=== PATIENT | male | born 1980 | race Caucasian/White ===

== ENCOUNTER 2018-06-13 16:49 | Emergency (ER) | payer BC ==
[~2018-06-13] VITALS: Ht 175.3 cm; Wt 75.6 kg
[~2018-06-13 16:49] MED LIST: NO HOME MEDICATIONS; NORCO 325 MG-51 TAB PO; UNABLE
[2018-06-13 17:25] VITALS: TEMP 98.2
[2018-06-13 18:39] LABS: BASO % 0.5 % (0.0-2.0); EOS % 0.3 % (0-4.0); GRAN # 3.9 (1.4-6.5); GRAN % 66.6 % (42.2-75.2); HEMATOCRIT 44.8 % (42.0-52.0); HEMOGLOBIN 15.9 g/dl (13.5-18.0); LYMPH # 1.6 (1.2-3.4); LYMPH % 27.6 % (20.0-51.0); MEAN CELL VOLUME 87 fl (80.0-100.0); MEAN CORPUSCULAR HEMOGLOBIN 31 pg (27.0-31.0); MEAN CORPUSCULAR HGB CONC 36 g/dl (33.0-37.0); MEAN PLATELET VOLUME 10.3 fl (7.4-10.4); MONO # 0.3 (0.1-0.6); MONO % 4.7 % (1.7-9.3); PLATELET COUNT 203 K/mm3 (130-400); RED BLOOD COUNT 5.16 M/mm3 (4.20-5.60); REDCELL DISTRIBUTION WIDTH-CV 11.8 % (11.5-14.5)
[2018-06-13 18:48] LABS: ALANINE AMINOTRANSFERASE 15 U/L (21-72); ALBUMIN 4.7 gm/dL (3.5-5.0); ALKALINE PHOSPHATASE 85 U/L (50-136); ANION GAP 14 mmol/L (7-16); AST,SGOT 19 U/L (15-37); BILIRUBIN,TOTAL 0.8 mg/dL (0.0-1.0); BLOOD UREA NITROGEN 9 mg/dL (9-20); CALCIUM 9.5 mg/dL (8.4-10.2); CARBON DIOXIDE 23 mmol/L (22-30); CHLORIDE 104 mmol/L (98-107); CREATININE, serum 0.78 (0.66-1.25); GLUCOSE 93 mg/dL (74-106); MAGNESIUM 2.1 mg/dL (1.6-2.3); POTASSIUM 3.8 mmol/L (3.4-5.0); SODIUM 141 mmol/L (137-145); TOTAL PROTEIN 7.9 gm/dL (6.4-8.2)
[2018-06-13 19:01] LABS: TROPONIN-I < 0.012 ng/mL (0.000-0.035)
[2018-06-13 22:00] VITALS: BP 118/69; PULSE 57
== END 2018-06-13 22:00 | disposition home or self-care (01) ==
LOC: COL.ER 16:49
PROVIDERS: Emergency Medicine
DX: R00.2 Palpitations (principal); Z88.0 Allergy status to penicillin
CPT/HCPCS: J7030

== ENCOUNTER → 2021-01-28 | Outpatient (CLI) | payer BC | LOC: COL.RAD 07:40 | DX: K76.0 Fatty (change of) liver, not elsewhere classified (principal) ==